=== PATIENT | female | born 1960 | race Caucasian/White ===

== ENCOUNTER 2021-10-24 08:08 | Day surgery (SDC) | payer BC ==
[2021-10-24 08:30] VITALS: BP 146/64; TEMP 97.9; O2SAT 100; BMI 34.5
[2021-10-24 08:56] LABS: Hematocrit 26.3 % (36.0-45.0)
[2021-10-24] MEDS ORDERED: EPOETIN ALFA-EPBX 10,000 UNIT/ML VIAL ONE (09:23)
[2021-10-24 09:47] LABS: Ferritin 142.8 ng/mL (8-388); Folic Acid, (Folate) > 20.0 ng/mL (3.1-17.5); Transferrin 206 mg/dL (200-360)
== END 2021-10-24 09:46 | disposition home or self-care (01) ==
LOC: DS 08:08
PROVIDERS: ATTEND Internal Medicine Nephrology
DX: N18.5 Chronic kidney disease, stage 5 (principal); D63.1 Anemia in chronic kidney disease
CPT/HCPCS: 36415; 85018; 85014; 82728; 82746; 82607; 83540; 84466; 96372; Q5106

== ENCOUNTER 2021-11-17 11:48 | Day surgery (SDC) | payer BC ==
[2021-11-17 12:02] VITALS: BP 141/71; TEMP 98.2; O2SAT 98; BMI 34.5
[2021-11-17 12:48] LABS: Hematocrit 25.1 % (36.0-45.0)
[2021-11-17] MEDS ORDERED: EPOETIN ALFA-EPBX 10,000 UNIT/ML VIAL ONE (12:53)
== END 2021-11-17 12:54 | disposition home or self-care (01) ==
LOC: DS 11:48
PROVIDERS: ATTEND Internal Medicine Nephrology
DX: N18.5 Chronic kidney disease, stage 5 (principal); D63.1 Anemia in chronic kidney disease
CPT/HCPCS: 36415; 85018; 85014; 96372; Q5106

== ENCOUNTER 2021-12-22 08:26 | Day surgery (SDC) | payer BC ==
[2021-12-22 09:14] LABS: Hematocrit 32.2 % (36.0-45.0)
[2021-12-22] MEDS ORDERED: EPOETIN ALFA-EPBX 10,000 UNIT/ML VIAL ONE (09:30)
[2021-12-22 09:42] VITALS: BP 129/62; TEMP 97.8; O2SAT 99; BMI 33.6
== END 2021-12-22 09:35 | disposition home or self-care (01) ==
LOC: DS 08:26
PROVIDERS: ATTEND Internal Medicine Nephrology
DX: N18.5 Chronic kidney disease, stage 5 (principal); D63.1 Anemia in chronic kidney disease
CPT/HCPCS: 36415; 85018; 85014; 96372; Q5106

== ENCOUNTER 2022-01-19 08:35 | Day surgery (SDC) | payer BC ==
[2022-01-19 08:53] VITALS: BP 133/59; TEMP 97.8; O2SAT 100; BMI 35.4
[2022-01-19 09:12] LABS: Hematocrit 28.1 % (36.0-45.0)
[2022-01-19] MEDS ORDERED: EPOETIN ALFA-EPBX 10,000 UNIT/ML VIAL ONE (09:21)
== END 2022-01-19 09:22 | disposition home or self-care (01) ==
LOC: DS 08:35
PROVIDERS: ATTEND Internal Medicine Nephrology
DX: N18.5 Chronic kidney disease, stage 5 (principal); D63.1 Anemia in chronic kidney disease
CPT/HCPCS: 36415; 85018; 85014; 96372; Q5106